=== PATIENT | male | born 1965 | race Two or more races ===

== ENCOUNTER 2019-09-04 15:03 | Inpatient (IN) | payer SELFPAY ==
[~2019-09-04] VITALS: Ht 165.1 cm; Wt 68.0 kg
--- NOTE | 2019-09-04 15:01 | NUR ---
ED Nurse Note: pt awake and sitting up on edge of bed. maori speaking only. poor hygiene noted. no resp distress no n/v/d. pt observed by bystanders drinking etoh today. 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
--- NOTE | 2019-09-04 15:08 | Emergency Room Report ---
History of Present Illness General Chief Complaint: Altered Mental Status Source: Patient, EMS Present Illness HPI Patient is a 54-year-old male brought in by EMS after increased altered mental status. Patient was found laying down on the street in the sun. Denies any current complaints. History is limited by poor patient cooperation. Allergies: Coded Allergies: UNABLE TO ASSESS (Unverified , 09/04/19) COVID-19 Screening Contact w/high risk pt: No Recent Travel to affected area: No Experienced COVID-19 symptoms?: No Patient History Reviewed Nursing Documentation: PMH: Agreed; PSxH: Agreed Nursing Documentation-PMH Past Medical History: Deferred Review of Systems All Other Systems: negative except mentioned in HPI Physical Exam Vital Signs Date Time Temp Pulse Resp B/P (MAP) Pulse Ox O2 Delivery O2 Flow Rate FiO2 09/04/19 14:56 99.5 150 17 154/110 (125) 94 Room Air General Appearance: well appearing, alert, non-toxic, other - Confused Head: normocephalic, atraumatic ENT: hearing grossly normal, normal voice Neck: full range of motion, supple Respiratory: chest non-tender, lungs clear, no respiratory distress, speaking full sentences Cardiovascular #1: normal inspection Gastrointestinal: normal inspection, non tender Musculoskeletal: normal inspection Neurologic: alert, motor strength/tone normal, fire tower keeper III-XII nml as tested, other - Ataxic gait Psychiatric: mood/affect normal Skin: no rash Procedures Critical Care Time Critical Care Time Patient had a critical medical condition which untreated could potentially result in life or limb threatening injury. Total critical care time excluding procedures approximately 45 minutes. Medical Decision Making Diagnostic Impression: Primary Impression: Recurrent seizures ER Course Patient presented for altered mental status. Differential diagnosis include was not limited to alcohol tox occasion, hypoglycemia, encephalopathy among others. Patient has a benign exam and does not appear to require any imaging or laboratory testing at this time. Patient does not appears to be intoxicated with alcohol. Does not appear to have any evidence of acute trauma. Patient is being observed in the emergency department. He was noted to have repeated seizure which required Ativan IM 2 mg as well as Ativan IV 2mg patient had subsequent resolution of seizure. Patient was noted to have continued somnolence. Patient started on IV fluids. There is noted to be some temporal lobe defect.Patient was noted to have some continued somnolence after medications. CT head read by radiology showed no evidence of acute intracranial hemorrhage. 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 Shailesh Peña was contacted by patient management due to panel physician Labs Test 09/04/19 14:20 09/04/19 16:20 Urine Color Yellow Urine Appearance Clear Urine pH 5 (4.5-8.0) Urine Specific [place] 1.025 (1.005-1.035) Urine Protein 3+ (NEGATIVE) Urine Glucose (UA) 3+ (NEGATIVE) Urine Ketones 1+ (NEGATIVE) Urine Blood 4+ (NEGATIVE) Urine Nitrite Negative (NEGATIVE) Urine Bilirubin Negative (NEGATIVE) Urine Urobilinogen Normal MG/DL (0.0-1.0) Urine Leukocyte Esterase Negative (NEGATIVE) Urine RBC 5-10 /HPF (0 - 0) Urine WBC 2-4 /HPF (0 - 0) Urine Squamous Epithelial Cells None /LPF (NONE/OCC) Urine Bacteria Moderate /HPF (NONE) Urine Opiates Screen Negative (NEGATIVE) Urine Barbiturates Screen Negative (NEGATIVE) Phencyclidine (PCP) Screen Negative (NEGATIVE) Urine Amphetamines Screen Negative (NEGATIVE) Urine Benzodiazepines Screen Negative (NEGATIVE) Urine Cocaine Screen Negative (NEGATIVE) Urine Marijuana (THC) Screen Negative (NEGATIVE) White Blood Count 16.8 K/UL (4.8-10.8) Red Blood Count 4.59 M/UL (4.70-6.10) Hemoglobin 14.0 G/DL (14.2-18.0) Hematocrit 44.3 % (42.0-52.0) Mean Corpuscular Volume 97 FL (80-99) Mean Corpuscular Hemoglobin 30.4 PG (27.0-31.0) Mean Corpuscular Hemoglobin Concent 31.5 G/DL (32.0-36.0) Red Cell Distribution Width 14.4 % (11.6-14.8) Platelet Count 285 K/UL (150-450) Mean Platelet Volume 6.2 FL (6.5-10.1) Neutrophils (%) (Auto) % (45.0-75.0) Lymphocytes (%) (Auto) % (20.0-45.0) Monocytes (%) (Auto) % (1.0-10.0) Eosinophils (%) (Auto) % (0.0-3.0) Basophils (%) (Auto) % (0.0-2.0) Sodium Level 140 MMOL/L (136-145) Potassium Level 3.9 MMOL/L (3.5-5.1) Chloride Level 98 MMOL/L (98-107) Carbon Dioxide Level 21 MMOL/L (21-32) Anion Gap 21 mmol/L (5-15) Blood Urea Nitrogen 14 mg/dL (7-18) Creatinine 1.7 MG/DL (0.55-1.30) Estimat Glomerular Filtration Rate 42.1 mL/min (>60) Glucose Level 143 MG/DL (74-106) Calcium Level 9.7 MG/DL (8.5-10.1) Total Bilirubin 1.0 MG/DL (0.2-1.0) Aspartate Amino Transf (AST/SGOT) 62 U/L (15-37) Alanine Aminotransferase (ALT/SGPT) 37 U/L (12-78) Alkaline Phosphatase 116 U/L (46-116) Total Protein 9.0 G/DL (6.4-8.2) Albumin 4.7 G/DL (3.4-5.0) Globulin 4.3 g/dL Albumin/Globulin Ratio 1.1 (1.0-2.7) Phenytoin (Dilantin) Level < 0.5 ug/mL (10-20) Serum Alcohol < 3 mg/dL EKG Diagnostic Results Rate: normal Rhythm: NSR ST Segments: no acute changes Last Vital Signs Date Time Temp Pulse Resp B/P (MAP) Pulse Ox O2 Delivery O2 Flow Rate FiO2 09/04/19 14:56 99.5 150 17 154/110 (125) 94 Room Air Status: unchanged Disposition: ADMITTED INPATIENT Condition: Travis Nolasco MD Sep 04, 2019 15:08
--- NOTE | 2019-09-04 15:15 | NUR ---
ED Nurse Note: pt unwilling to give his name or at this time staff attempted to give pt clothing pt declines at this time.
--- NOTE | 2019-09-04 15:22 | NUR ---
ED Nurse Note: pt given urinal for voiding.
--- NOTE | 2019-09-04 15:45 | NUR ---
ED Nurse Note: pt noted to be ambulating in room putting on pants and tolerating water well. food given to pt, but he declines it at this time. pt still confused and not relaying his name/.
--- NOTE | 2019-09-04 16:07 | NUR ---
ED Nurse Note: pt noted to be having seizure activity while in room after being found on floor by local flatbed driver. rn and tech transferred to [facility] and moved to telemtry room for closer observation. pt with seizure precautions initiated. pt placed on cardiac monitoring. md and charge made aware
[2019-09-04] MEDS ORDERED: LORazepam Inj 2mg/ml 1ml ONE ×2 (16:09→16:16)
[2019-09-04] MEDS ORDERED: LORazepam Inj 2mg/ml 1ml IM ONE (16:15)
--- NOTE | 2019-09-04 16:28 | NUR ---
ED Nurse Note: blood and urine sent to lab
[2019-09-04] MEDS ORDERED: LORazepam Inj 2mg/ml 1ml IV ONE (16:30)
--- NOTE | 2019-09-04 16:35 | NUR ---
ED Nurse Note: Pt had three seizures total, lasting from about 40 seconds to 1.5 minutes. Pt is now post ictal and has not had a seizure for 10 minutes. Pt asleep in bed, reacting to painful stimuli. Pupils sluggish bilaterally. Oral secretions suctioned after seizures. Respirations even and unlabored on room air. Heart rate sinus tachy @ 120s on the monitor. Axillary temp 100.3. ED MD aware.
--- NOTE | 2019-09-04 16:44 | NUR ---
ED Nurse Note: Pt in CT
[2019-09-04] MEDS ORDERED: Thiamine HCl 100 MG in D5W 55 ML IVPB ONE (16:45)
[2019-09-04 16:56] LABS: HEMATOCRIT 44.3 % (42.0-52.0); MEAN CORPUSCULAR VOLUME 97 FL (80-99); PLATELET COUNT 285 K/UL (150-450); RED BLOOD COUNT 4.59 M/UL (4.70-6.10); RED CELL DISTRIBUTION WIDTH 14.4 % (11.6-14.8); WHITE BLOOD COUNT 16.8 K/UL (4.8-10.8)
[2019-09-04 16:59] LABS: ANION GAP 21 mmol/L (5-15); BLOOD UREA NITROGEN 14 mg/dL (7-18); CALCIUM 9.7 MG/DL (8.5-10.1); CARBON DIOXIDE 21 MMOL/L (21-32); CHLORIDE 98 MMOL/L (98-107); CREATININE 1.7 MG/DL (0.55-1.30); POTASSIUM 3.9 MMOL/L (3.5-5.1); SODIUM 140 MMOL/L (136-145)
--- NOTE | 2019-09-04 17:01 | NUR ---
ED Nurse Note: Pt back from CT. O2 saturation 95% on room air. Pt is more awake, not following commands.
[2019-09-04 17:06] VITALS: BP 162/108
[2019-09-04 17:08] LABS: ALANINE AMINOTRANSFERASE 37 U/L (12-78); ALBUMIN 4.7 G/DL (3.4-5.0); ALBUMIN/GLOBULIN RATIO 1.1 (1.0-2.7); ALKALINE PHOSPHATASE 116 U/L (46-116); ASPARTATE AMINO TRANSFERASE 62 U/L (15-37)
[2019-09-04 17:17] LABS: APPEARANCE,URINE CLEAR; BILIRUBIN, URINE NEGATIVE (NEGATIVE); COLOR,URINE YELLOW; GLUCOSE, URINE (UA) 3+ (NEGATIVE); KETONES,URINE 1+ (NEGATIVE); LEUKOCYTE ESTERASE ,URINE NEGATIVE (NEGATIVE); NITRITE,URINE NEGATIVE (NEGATIVE); PH,URINE 5 (4.5-8.0); PROTEIN,URINE 3+ (NEGATIVE); UROBILINOGEN,URINE NORMAL MG/DL (0.0-1.0)
[2019-09-04] MEDS ORDERED: levETIRAcetam 500mg/NS100ml 100 ML IVPB ONE (17:30)
--- NOTE | 2019-09-04 17:46 | Diagnostic Imaging Report ---
Indications: Altered mental status and seizures Technique: Spiral acquisitions obtained through the brain. Angled axial and coronal 5 x 5 mm slices were reconstructed. Total dose length product 1098 mGycm. CTDI vol(s) 53 mGy. Dose reduction achieved using automated exposure control Comparison: None. Findings: There is age-related enlargement of the ventricles and extra-axial CSF spaces. There is an area of encephalomalacia involving the right temporal and parietal lobes. There is resultant ex vacuo dilatation of the atrium and temporal horn of the right lateral ventricle. There is also some encephalomalacia in the inferior right frontal lobe. Otherwise normal sosa-white differentiation. Visualized orbits and sinuses are unremarkable. The mastoids are clear. The calvarium is intact. 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
--- NOTE | 2019-09-04 17:47 | Diagnostic Imaging Report ---
Indication: Chest pain Technique: One view of the chest Comparison: none Findings: Lungs and pleural spaces are clear. Heart size is normal. Impression: No acute process
[2019-09-04] MEDS ORDERED: Acetaminophen 650 MG SUPP RECTAL PRN ×2 (18:15)
[2019-09-04] MEDS ORDERED: LORazepam Inj 2mg/ml 1ml IV PRN (18:15)
[2019-09-04] MEDS: D5 1/2NS w/KCl 20mEq 1,000 ML IV SCH (19:08)
[2019-09-04 19:20] VITALS: BP 188/114
--- NOTE | 2019-09-04 19:20 | NUR ---
ED Nurse Note: Report received from RUTHIE Jiménez. Pt is sleeping at this time, no acute distress. Pt BP is elevated, will call admitting doctor. IV is patent and intact, IV fluids infusing. Seizure pads and safety measures in place. Will cont. to monitor pt. See vitals flow sheet.
--- NOTE | 2019-09-04 19:30 | NUR ---
ED Nurse Note: ERMD aware of pt elevated BP.
--- NOTE | 2019-09-04 19:40 | NUR ---
ED Nurse Note: Called Dr. Peña regarding pt elevated BP, left voicemail.
[2019-09-04] MEDS ORDERED: Miralax 17gm pkt ORAL PRN (21:00)
[2019-09-04] MEDS ORDERED: levETIRAcetam 1,000mg/NS100ml 100 ML IVPB SCH (21:00)
[2019-09-04 21:45] VITALS: BP 163/95
--- NOTE | 2019-09-04 21:45 | NUR ---
ED Nurse Note: Pt is sleeping at this time, no acute distress noted. Safety measures in place. BP is lower at 163/95.
[2019-09-04 23:45] VITALS: BP 171/100
--- NOTE | 2019-09-04 23:45 | NUR ---
ED Nurse Note: Pt is sleeping at this time. No acute distress, breathing is normal and unlabored. Safety measures in place.
--- NOTE | 2019-09-05 00:55 | NUR ---
ED Nurse Note: Pt able to use urinal bedside with assitance. Pt is awake and alert, unable to answer questions.
[2019-09-05 01:30] VITALS: BP 159/104
--- NOTE | 2019-09-05 01:30 | NUR ---
ED Nurse Note: Pt appears to be sleeping. Safety measures in place, seizure precautions taken. Vital signs are stable as charted.
--- NOTE | 2019-09-05 02:00 | NUR ---
ED Nurse Note: Report given to RUTHIE Rodriguez.
--- NOTE | 2019-09-05 02:55 | NUR ---
ED Nurse Note: Pt stable for transfer to tele unit at this time per ERMD. Pt is awake and alert, oriented x1. Pt is in no acute distress. Pt IV is patent and intact. Endorsed vital signs trend to receiving RN on tele unit. No respiratory distress noted. Pt taken to unit via gurney by 2 RN, connected to sampler and test preparer. Pt belongings sent with pt.
--- NOTE | 2019-09-05 03:06 | NUR ---
NURSE NOTES: Received report from RUTHIE Macias. Patient was transferred to Telemetry unit from ER via [facility] without incident. No signs of acute distress or pain noted at this time. AOx1; verbalizes needs to a limited degree. Checked IV site; patent and flushed. No erythema, bleeding, or infiltration noted. Belongings list checked with transferring RN. Skin assessment performed; no wounds noted. Skin is intact. Bed at lowest position, brakes on, siderails up x3. Siderails padded following seizure precautions. Call light within reach. Will continue to monitor.
[2019-09-05] MEDS: D5 1/2NS w/KCl 20mEq 1,000 ML IV SCH ×3 (03:27→03:29)
[2019-09-05 03:30] VITALS: BP 179/126
[2019-09-05 05:05] VITALS: BP 156/115
--- NOTE | 2019-09-05 07:25 | NUR ---
HAND-OFF: Report given to RUTHIE Smith. Patient is asleep lying semi-monet's; resting comfortably. No seizure noted throughout shift. In stable condition.
--- NOTE | 2019-09-05 08:51 | NUR ---
NURSE NOTES: Pt is awake and alert, he states he wants to leave and is refusing to sign the AMA paperwork. pt had no belongings. Pt is not on any involuntary hold. IV removed, ID band removed. Pt was walked to the elevator and escorted outside. Pt left at 0845. DR Peña was notified at 0850. Incident report to follow.
--- NOTE | 2019-09-05 09:07 | NUR ---
NURSE NOTES: incident report complete, charge nurse aware, Dr Peña aware, data warehouse developer aware
--- NOTE | 2019-09-05 09:08 | NUR ---
NURSE NOTES: Pt states his name was Man, no other info was given
--- NOTE | 2019-09-05 11:00 | NUR ---
CASE MANAGEMENT:REVIEW 09/04/19 54 YR OLD MALE BIBA FROM STREET CC: FOUND ON SIDEWALK WITH ALOC SI: RECURRENT SEIZURES 100.3 150 17 154/110 94% ON RA WBC+16.8 CR+1.7 AST+62 IS: IV ATIVAN X1 IM ATIVAN X1 1L NS BOLUS X1 IV THIAMINE X1 URINE CX CT HEAD BLOOD CX CHEST XRAY : TO TELEMETRY 09/05/19 PATIENT REQUESTED A DRINK OF ALCOHOL ORANGE JUICE OFFERED PATIENT LEFT AMA
--- NOTE | 2019-09-05 17:56 | Discharge Summary ---
Discharge Summary Discharge Summary _ DATE OF ADMISSION: 09/04/2019 DATE OF DISCHARGE: 09/05/2019 Patient left AGAINST MEDICAL ADVICE. REASON FOR ADMISSION: 54 years old male with unknown past medical history was brought by paramedics with altered mental status. Patient was found lying down on the street in the sun. Patient denied any current complaints. Upon evaluation patient was tachycardic with heart rate 150 ,blood pressure was 150/110 . Pulse oximetry was 94% on the room air . Patient had low-grade fever 99.5. Laboratory work-up revealed leukocytosis WBC 16.8, hemoglobin 14 ,hematocrit 44.3 ,platelet count 285. Stable electrolytes. Anion gap 21. BUN 14, creatinine 1.7. Glucose 143. AST 62 , ALT 37 . Albumin 4.7. Urinalysis revealed +3 protein + 2 glucose, microscopic hematuria and mild to moderate bacteria ,but no pyuria, and leukocyte esterase was negative. Urine toxicology screen was negative. Serum alcohol less than 3 . Dilantin level less than 0.5. In emergency room patient was observed and noted to have repeated seizure activity , which required Ativan IV. Seizure resolved. CT of the head revealed no acute intracranial pathology. Right frontal and temporal encephalomalacia , likely old infarcts. Patient started on the IV fluids , reeived Keppra IV in addition to Ativan .. Patient subsequently admitted for further management due to recurrent seizures HOSPITAL COURSE: Patient admitted to telemetry floor. Seizure precaution maintained. Patient started on Keppra. Ativan was on board as needed for breakthrough seizure. Bowel regimen instituted. Early in the morning, after spending the night in the hospital, patient became much more awake and oriented, and decided to leave AGAINST MEDICAL ADVICE. The risks and consequences of signing AGAINST MEDICAL ADVICE were discussed with patient in detail. Patient verbalized understanding. However, he declined signing AMA form and left. FINAL DIAGNOSES: Recurrent seizures I have been assigned to dictate discharge summary for this account. I was not involved in the patient's management. Sydni Brantley NP Sep 05, 2019 17:56
== END 2019-09-05 09:10 | disposition left against medical advice (07) | DRG 101 ==
LOC: EDBD 15:03 → EMR 15:22 → 2E 17:18 → EDBEDREQ 09-05 00:20 → 2E 09-05 05:56
DX: G40.89 Other seizures (principal)
CPT/HCPCS: 36415; 70450; 71045; 80053; 80185; 80307; 81003; 85007; 85025; 87081; 87086; 96361; 96365; 96372; 96375; 99291; G0480; J7030